=== PATIENT | female | born 1960 | race Caucasian/White ===

== ENCOUNTER → 2023-04-19 06:46 | Outpatient (REF) | payer OTHER, SELFPAY | LOC: HWRAD 06:46 | PROVIDERS: ATTENDING PHYSICIAN Family Medicine | DX: M54.50 Low back pain, unspecified (principal); M54.2 Cervicalgia | CPT/HCPCS: 72052; 72110 ==

== ENCOUNTER → 2023-05-11 07:05 | Outpatient (REF) | payer OTHER, SELFPAY | LOC: HWRAD 07:05 | PROVIDERS: ATTENDING PHYSICIAN Family Medicine | DX: J84.10 Pulmonary fibrosis, unspecified (principal) | CPT/HCPCS: 71046 ==

== ENCOUNTER → 2023-05-26 07:56 | Outpatient (REF) | payer OTHER, SELFPAY | LOC: HWRAD 07:56 | PROVIDERS: ATTENDING PHYSICIAN Family Medicine | DX: R93.89 Abnormal findings on diagnostic imaging of other specified body structures (principal) | CPT/HCPCS: 71260; Q9967 ==

== ENCOUNTER → 2023-05-30 18:01 | Outpatient (REF) | payer OTHER, SELFPAY | LOC: PAVMRI 18:01 | PROVIDERS: ATTENDING PHYSICIAN Family Medicine | DX: M54.50 Low back pain, unspecified (principal); M62.81 Muscle weakness (generalized); M54.2 Cervicalgia | CPT/HCPCS: 72141; 72148 ==

== ENCOUNTER 2023-06-13 12:01 | Day surgery (SDC) | payer OTHER, SELFPAY ==
[2023-06-13] VITALS (7 sets, daily range): BP systolic 18–124; BP diastolic 61–69; BMI 20.6
[2023-06-13 12:46] LABS: Hematocrit 34.2 % (37.0-47.0); Mean Corp Hgb Conc. 32.2 g/dL (33.0-37.0); Mean Corpuscular Hgb 26.4 pg (27.0-31.0); Mean Platelet Volume 9.5 fL (7.4-10.4); Platelet Count 374 10^3/uL (130-400); Red Blood Cell Count 4.17 10^6/uL (4.20-5.40); Red Cell Dist. Width 15.2 % (11.5-14.5); White Blood Cell Count 13.4 10^3/uL (4.8-10.8)
[2023-06-13 12:57] LABS: INR 1.26; PT 15.6 Sec (11.4-14.6)
[2023-06-13 12:58] LABS: APTT 24.5 Sec (23.4-35.0)
[2023-06-13 13:02] LABS: Blood Urea Nitrogen 18 mg/dl (7-17); Calcium 10.5 mg/dl (8.4-10.2); Carbon Dioxide 29 mmol/L (22-30); Chloride 102 mmol/L (98-107); Estimated Creatinine Clearance 85 ml/min; Glucose 112 mg/dl (70-99); Potassium 4.1 mmol/L (3.5-5.1); Sodium 136 mmol/L (135-145); eGFR > 60.00
[2023-06-13] MEDS: BACTROBAN NASAL 1 GRAM NASAL (13:32)
[2023-06-13] MEDS: PERIDEX 0.12% ORAL RINSE 15 ML PO (13:32)
--- NOTE | 2023-06-13 16:35 | W.SUR.PREOP ---
Pre-Operative Surgical Note
-
I have examined this patient prior to the performance of the scheduled procedure.
The patient's condition is unchanged from the time of the current History and
Physical and the patient is able to undergo the scheduled procedure.
--- NOTE | 2023-06-13 17:49 | OR.RPT ---
Operative Report
Operative Report
Date of Operation: 06/13/2023
Pre Op Diagnosis: Suspected temporal arteritis
Post Op Diagnosis: Suspected temporal arteritis
Procedure: BILATERAL temporal artery biopsies
Surgeon: Brian Coburn III, MD
Journeyman Pipe Welder: Gerardo Medina MD PhD, PGY1
Anesthesia: Sedation/local
Complications: None
Estimated Blood Loss: Minimal
History and Indications for Procedure: 63-year-old female with PMR and symptom constellation concerning for temporal arteritis. We were asked to provide bilateral temporal artery biopsies for diagnostic purposes.
Procedure in Detail: Debbie Burkett was correctly identified and placed supine on the operating table. After adequate induction of anesthesia the hair overlying the bilateral temporal regions was shaved. The temporal pulses were palpated
bilaterally and appropriate skin incisions were marked over the temporal pulses bilaterally. The bilateral temporal regions were then prepped and draped in the usual sterile fashion. The patient received preoperative antibiotics. A timeout
procedure was performed with the nursing and anesthesia staff confirming the patient's identity as well as the nature and laterality of the procedure.
Bilateral temporal artery biopsies were performed one at a time in the same manner as follows: Local anesthesia was infiltrated into the skin and subcutaneous tissue at the skin ina. A skin incision was made over the temporal skin ina.
Electrocautery and sharp dissection were used to expose the temporal artery. After adequate length of temporal artery had been exposed within the wound bed the proximal and distal ends were ligated with silk ties and small metal clips. The
intervening artery segment was transected proximally and distally and removed. The artery segment was identified according to laterality and passed off to the back table to be labeled and sent to pathology. The wound was then closely inspected for
hemostasis which was achieved. The wound was irrigated with saline solution.
Each wound was closed in layers. Skin glue was applied to each incision bilaterally.
The patient tolerated the procedure well and was taken to the recovery room in good condition.
Attestation: I was present and responsible for the entire procedure
Signed:
Brian Coburn III, MD
[facility]
[phone] (cell)
[2023-06-13] MEDS: TYLENOL 650 MG PO (18:11)
--- NOTE | 2023-06-13 18:40 | W.IMMPOSTOP ---
Surgical Immed Post Op Note
-
Primary Surgeon: Dr. Brian Coburn III, MD
Assisting Surgeon: Dr. Gerardo Medina MD, PhD (PGY-1)
Pre-op Diagnosis: Suspected temporal arteritis
Post-op Diagnosis: Suspected temporal arteritis
Procedure Performed: Bilateral temporal artery biopsies
Anesthesia Type: MAC
Specimen / Cultures: Right and left temporal artery segments
Estimated Blood Loss: Minimal
Complications: None
Operative Findings: The patient was brought to the room and placed in supine position with arms tucked. The temporal arteries were palpated bilaterally and marked at the skin with a marker. The skin was prepped and draped in usual sterile fashion.
Local anesthetic was injected above the left temporal artery site. Incision was made and sharp dissection was used to expose the superficial temporal artery. Branches of the vessel were ligated and divided using silk ties and metal clips. Silk ties
were then tied on the proximal and distal ends of the artery and a ~2-3cm segment was transected. This specimen was passed from the sterile field and sent to the pathology lab for testing. The wound bed was irrigated and hemostasis was ensured. The
soft tissues and skin were closed with two layers of suture and skin glue. The same surgical steps were performed at the right temporal artery site. At the conclusion of the sequential temporal artery biopsies, the patient was stable and transferred
to the PACU.
== END 2023-06-13 18:38 | disposition home or self-care (01) ==
LOC: CATH 12:01
PROVIDERS: ATTENDING PHYSICIAN Surgery Vascular Surgery; FAMILY PHYSICIAN Family Medicine
DX: R51.9 Headache, unspecified (principal); R68.84 Jaw pain; Z87.891 Personal history of nicotine dependence
CPT/HCPCS: 37609; 88305; 80048; 85027; 85610; 85730; 88313; 93005

== ENCOUNTER → 2023-07-07 07:34 | Outpatient (REF) | payer OTHER, SELFPAY | LOC: HWRAD 07:34 | PROVIDERS: ATTENDING PHYSICIAN Family Medicine | DX: F19.20 Other psychoactive substance dependence, uncomplicated (principal) | CPT/HCPCS: 77080 ==

== ENCOUNTER → 2023-07-14 06:25 | Day surgery (SDC) | payer OTHER, SELFPAY | LOC: GI 06:25 | PROVIDERS: ATTENDING PHYSICIAN Internal Medicine Gastroenterology | DX: D12.0 Benign neoplasm of cecum (principal); D12.3 Benign neoplasm of transverse colon; D12.4 Benign neoplasm of descending colon; K57.30 Diverticulosis of large intestine without perforation or abscess without bleeding; K64.8 Other hemorrhoids; D50.9 Iron deficiency anemia, unspecified; K22.9 Disease of esophagus, unspecified; K44.9 Diaphragmatic hernia without obstruction or gangrene | CPT/HCPCS: 45385; 45380; 43239; 88305; 87220; 88342 ==

== ENCOUNTER → 2023-09-06 07:43 | Outpatient (REF) | payer OTHER, SELFPAY | LOC: MRI 07:43 | PROVIDERS: ATTENDING PHYSICIAN Internal Medicine; FAMILY PHYSICIAN Family Medicine | DX: M31.6 Other giant cell arteritis (principal) | CPT/HCPCS: 70549; 71555; A9585 ==

== ENCOUNTER → 2023-09-08 07:33 | Outpatient (REF) | payer OTHER, SELFPAY | LOC: MRI 07:33 | PROVIDERS: ATTENDING PHYSICIAN Internal Medicine; FAMILY PHYSICIAN Family Medicine | DX: M31.6 Other giant cell arteritis (principal) | CPT/HCPCS: 72198; 74185; A9585 ==

== ENCOUNTER → 2023-10-05 07:28 | Outpatient (REF) | payer OTHER, SELFPAY | LOC: HWWDC 07:28 | PROVIDERS: ATTENDING PHYSICIAN Family Medicine | DX: Z12.31 Encounter for screening mammogram for malignant neoplasm of breast (principal) | CPT/HCPCS: 77063; 77067 ==

== ENCOUNTER 2023-12-23 06:29 | Day surgery (SDC) | payer OTHER, SELFPAY ==
[2023-12-23 08:56] VITALS: BMI 21.2
[2023-12-23 08:57] VITALS: BMI 21.2
[2023-12-23 09:06] VITALS: BP 101/61
[2023-12-23 12:00] VITALS: BP 98/59
[2023-12-23 12:16] VITALS: BP 121/73
== END 2023-12-23 12:49 | disposition home or self-care (01) ==
LOC: SDS 06:29
PROVIDERS: ATTENDING PHYSICIAN Internal Medicine Gastroenterology
DX: D12.0 Benign neoplasm of cecum (principal); K64.0 First degree hemorrhoids; T18.4XXA Foreign body in colon, initial encounter; Y83.1 Surgical operation with implant of artificial internal device as the cause of abnormal reaction of the patient, or of later complication, without mention of misadventure at the time of the procedure
CPT/HCPCS: 45390; 88305

== ENCOUNTER → 2024-06-21 07:23 | Outpatient (REF) | payer OTHER, SELFPAY | LOC: HWRAD 07:23 | PROVIDERS: ATTENDING PHYSICIAN Student in an Organized Health Care Education/Training Program; FAMILY PHYSICIAN Family Medicine | DX: M81.0 Age-related osteoporosis without current pathological fracture (principal); G56.03 Carpal tunnel syndrome, bilateral upper limbs | CPT/HCPCS: 72072; 72110; 73130 ==

== ENCOUNTER → 2024-07-17 06:44 | Outpatient (REF) | payer OTHER, SELFPAY | LOC: EMG 06:44 | PROVIDERS: ATTENDING PHYSICIAN Student in an Organized Health Care Education/Training Program; FAMILY PHYSICIAN Internal Medicine | DX: G56.03 Carpal tunnel syndrome, bilateral upper limbs (principal); R20.0 Anesthesia of skin | CPT/HCPCS: 95886; 95911 ==

== ENCOUNTER → 2024-07-25 07:45 | Outpatient (REF) | payer OTHER, SELFPAY | LOC: HWRAD 07:45 | PROVIDERS: ATTENDING PHYSICIAN Family Medicine | DX: R91.1 Solitary pulmonary nodule (principal) | CPT/HCPCS: 71250 ==

== ENCOUNTER → 2024-08-15 06:49 | Outpatient (REF) | payer OTHER, SELFPAY | LOC: RAD 06:49 | PROVIDERS: ATTENDING PHYSICIAN Family Medicine | DX: Z13.6 Encounter for screening for cardiovascular disorders (principal) | CPT/HCPCS: 93880 ==

== ENCOUNTER → 2024-09-11 08:00 | Outpatient (REF) | payer OTHER, SELFPAY | LOC: HWRAD 08:00 | PROVIDERS: ATTENDING PHYSICIAN Surgery; FAMILY PHYSICIAN Family Medicine | DX: R31.29 Other microscopic hematuria (principal) | CPT/HCPCS: 76770 ==

== ENCOUNTER → 2024-11-13 07:05 | Outpatient (REF) | payer OTHER, SELFPAY | LOC: HWWDC 07:05 | PROVIDERS: ATTENDING PHYSICIAN Family Medicine | DX: Z12.31 Encounter for screening mammogram for malignant neoplasm of breast (principal) | CPT/HCPCS: 77063; 77067 ==

== ENCOUNTER 2025-01-25 06:16 | Day surgery (SDC) | payer OTHER, SELFPAY | END 2025-01-25 09:30 | disposition home or self-care (01) | LOC: GI 06:16 | PROVIDERS: ATTENDING PHYSICIAN Internal Medicine Gastroenterology | DX: Z12.11 Encounter for screening for malignant neoplasm of colon (principal); D12.3 Benign neoplasm of transverse colon; K63.5 Polyp of colon; Z86.0101 Personal history of adenomatous and serrated colon polyps | CPT/HCPCS: 45385; 45380; 88305 ==